=== PATIENT | male | born 1975 | race Two or more races ===

== ENCOUNTER 2021-09-09 06:49 | Emergency (ER) | payer OTHER ==
[2021-09-09 07:10] VITALS: BP 122/46; PULSE 57; TEMP 98.2; BMI 25.0
[2021-09-09] MEDS ORDERED: levETIRAcetam 500 MG TABLET (FP) PO ONE (07:23)
== END 2021-09-09 09:35 | disposition home or self-care (01) ==
LOC: JER 06:49
DX: G43.119 Migraine with aura, intractable, without status migrainosus (principal)
CPT/HCPCS: 99283-25